=== PATIENT | female | born 1940 | race Caucasian/White ===

== ENCOUNTER 2024-06-06 12:44 | Outpatient (AMB) | payer MEDICARE, OTHER, SELFPAY ==
--- NOTE | 2024-06-06 12:54 | A.OFFPC_ITS ---
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 Transferring care from unknown. Medical records have not been requested and have not received. Blue Prints Trimmer Required: No Shredding Machine Tender: Not Required per policy Accompanied by: Self / Same As Patient Allergies No Known Allergies Allergy (Verified 06/06/24 13:06) Medication List - Last Reconciled 06/06/24 by Arron Carlton MD aspirin 325 mg PO DAILY PRN multivitamin (Daily Multi-Vitamin tablet) 1 tab PO DAILY Tobacco use date assessed: 06/06/24 Fall risk assessment: No Falls in past year Last assessed Fall Risk: 06/06/24 Dental Screening Dental Screen Date: 06/06/24 Did you have a dental visit in the last 12 months?: No Did you have a dental problem in the last 6 months where you did not have access to dental care?: No Was dental information given to patient?: No 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 Health Maintenance - Influenza and COVID-[address] administered in January. - Pneumococcal vaccination completed. - Shingles vaccination series started bu t not completed. - Encouraged dietary improvements focusi ng on plant-based nutrition. - Advised regular exercise irrespective of weather conditions. - Discussion of the risks and benefits o f aspirin use in elderly patients. Social History - Diet: Reports eating healthy and consu dimitrios lot of vegetables. - Exercise: Plans to incorporate more wa lking; currently engages in home-based movement. 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 - Hearing: Using bilateral hearing aids, not yet fully accustomed. - Aspirin use as needed for arthritis. - Expressed a preference for eating bett er over heavy vitamin reliance. Review of Systems - Constitutional: Denies fever, nausea, or vomiting. - Respiratory: Denies shortness of breat h. - Cardiovascular: Denies chest pain. - Gastrointestinal: Denies diarrhea or a bdominal pain. - Musculoskeletal: Reports knee pain, wo rsens with activity. - Dermatological: Reports non-malignant lesion. - Ear/Nose/Throat: Acknowledges hearing difficulties and use of hearing aids. Physical Exam - Cardiovascular- Blood pressure is note d to be within normal limits. - Dermatological- Non-malignant lesion o bserved, no signs of malignancy. - Respiratory- Breathing assessment is n ormal; no reported difficulty. Results Plan The management of arthritis includes eliminating aspirin in favor of Voltaren gel topically. An orthopedic evaluation is on the agenda for joint pain assessment. Thyroid imaging is scheduled via ultrasound to assess nodule status. Compression stockings are advised to manage bilateral leg swelling while ruling out systemic causes through fasting blood tests. Further dermatologic appraisal is optional, pending lesion changes. Relevant vaccinations are up-to-date; a complete shingles series will be pursued via the pharmacy. Patient was informed and verbally consented to the use of an ambient scribe for clinic note documentation during this visit. Discussion Notes I discussed the risks of continuing aspirin for arthritis relief due to potential bleeding issues, promoting Voltaren gel as a safer alternative. We reviewed the necessity for an ultrasound exam of her thyroid to evaluate existing nodules. The need for appropriate screenings, including fasting blood work to investigate potential causes for leg edema, was emphasized. I addressed the importance of a balanced diet, regular exercise, and proper footwear for overall health and well-being?explained current vaccine statuses and encouraged completing the shingles series. Follow-up for newly completed tests and additional concerns expressed by the patient are necessary for maintaining comprehensive care. Patient Instructions - Discontinue aspirin, and begin using V oltaren gel for arthritis pain management. - Schedule and complete the ultrasound f or thyroid evaluation. - Adhere to the recommendation of wearin g compression stockings and elevate legs when seated. - Complete fasting blood work after an o vernight fast. - Increase physical activity, aiming for regular walking and home exercises. - Maintain a balanced diet emphasizing p lant proteins over animal proteins. - Complete shingles vaccination as alberto melendez at a local pharmacy. - Promptly report any changes in the anderson matological lesion to a general car supervisor yard. - Prepare any pertinent medical records for future appointments. [facility] Surgical History (Updated 06/06/24 @ 13:08 by AVRIL Ureña) History of cataract surgery Social History (Updated 06/06/24 @ 12:55 by AVRIL Ureña) Housing: House Alcohol intake: never Patient Tobacco Use Status: Never used Tobacco e-Cigarette/Vaping Use: Never Used Second Hand Smoke Exposure: No service: No Current occupational status: retired Cognitive needs: Yes (Cane) Hearing needs: Yes (Hearing aide) Vision needs: Yes (Glasses) Questionnaire PHQ-9 Over the last 2 weeks, how often have you been bothered by any of the following problems? 1. Little interest or pleasure in doing things: not at all 2. Feeling down, depressed, or hopeless: not at all 3. Trouble falling or staying asleep, or sleeping too much: several days 4. Feeling tired or having little energy: not at all 5. Poor appetite or overeating: not at all 6. Feeling bad about yourself - or that you are a failure or have let yourself or your family down: not at all 7. Trouble concentrating on things, such as reading the newspaper or watching television: not at all 8. Moving or speaking so slowly that other people could have noticed. Or the opposite - being so fidgety or restless that you have been moving around a lot more than usual: not at all 9. Thoughts that you would be better off or of hurting yourself in some way: not at all Total score: 1 Depression Screening Interpretation: Positive Depression Screening Done: Yes Source: Developed by Drs. Audi Isaacs, Lisa Middleton, Chinedu England and colleagues, with an educational reji from [employer]. Thrive Questionnaire Date Thrive assessed: 05/30/24 I am a: Patient What is your living situation today?: I have a steady place to live Within the past 12 months, did the food you bought not last and you didn't have the money to get more?: Never true Within the past 12 months, did you worry whether your food would run out before you got money to buy more?: Never true Do you have trouble paying for medicines?: No Do you have trouble getting transportation to medical appointments?: No Do you have trouble paying your heating and electricity bill?: No Do you have trouble taking care of your child, family member or friend?: No Do you have trouble with day-to-day activities such as bathing, preparing meals, shopping, managing finances, etc.?: No Are you currently unemployed and looking for a job?: No Are you interested in more education?: No Please select the resources that you would like help with: None Currently or been in a relationship where the following occur: No concerns reported THRIVE Score: 0 AUDIT C Alcohol Use Questionnaire (AUDIT-C) 1. How often do you have a drink containing alcohol?: Monthly or less 2. How many drinks containing alcohol do you have on a typical day when you are drinking?: 1 or 2 3. How often do you have six or more drinks on one occasion?: Never Total Score: 1 RAGINI-7 AMB Questionnaire RAGINI-7 Date RAGINI - 7 assessed: 06/06/24 Feeling nervous, anxious, or on edge: 0 = Not at all Not being able to stop or control worryin = Not at all Worrying too much about different things: 0 = Not at all Trouble relaxin = Not at all Being so restless that it is hard to sit still: 0 = Not at all Becoming easily annoyed or irritable: 0 = Not at all Feeling afraid as if something awful might happen: 0 = Not at all Total RAGINI-7 score (0-4 normal; 5-9 mild; 10-14 moderate; 15-21 severe): 0 Source: Developed by Drs. Audi Isaacs, Lisa Middleton, Chinedu England and colleagues, with an educational reji from [employer]. Physical exam (Primary Care) Vital Signs: Last Vital Signs Temp 97.1 F 06/06/24 12:57 Pulse 78 06/06/24 12:57 BP 122/62 06/06/24 12:57 Pulse Ox 96 06/06/24 12:57 Oxygen Delivery Method Room Air 06/06/24 12:57 BMI result Body Mass Index 28.2 Tobacco/Smoking Status: Tobacco use Status Tobacco use date assessed 06/06/24 06/06/24 13:10 Patient Tobacco Use Status Never used Tobacco 06/06/24 13:10 e-Cigarette/Vaping Use Never Used 06/06/24 13:10 PHQ-9: PHQ-9 Score PHQ-9: Total score 1 06/06/24 14:38 Depression Screening Interpretation: Positive Thrive Assessment: Date of Thrive Assessment Date Thrive assessed 05/30/24 06/06/24 12:55 Currently or been in a relationship where the following occur: No concerns reported Const General: alert; No acute distress Eyes Conjunctivae: conjunctivae normal Resp Auscultation: clear to auscultation bilaterally Cardio Rate: regular rate Rhythm: regular rhythm GI Inspection: Yes normal to inspection Abdomen image: 2 1. 3 cm rash with mild yellowish discoloration with a rough surface Extrem Other: Bilateral 2+ edema of the lower extremity General: Yes edema Coding Level of Care Code New Pt Level 4 (24192) Diagnoses Thyroid nodule E04.1 Actinic keratosis L57.0 Colonoscopy refused Z53.20 Hearing loss H91.90 Localized swelling of both lower legs R22.43 Bilateral knee pain M25.561; M25.562 Assessment & Plan Assessment & Plan (1) Thyroid nodule: Code(s): E04.1 - Nontoxic single thyroid nodule Category: Medical (2) Actinic keratosis: Comment: L abdomen Code(s): L57.0 - Actinic keratosis Category: Medical (3) Colonoscopy refused: Code(s): Z53.20 - Procedure and treatment not carried out because of patient's decision for unspecified reasons Category: Medical (4) Hearing loss: Code(s): H91.90 - Unspecified hearing loss, unspecified ear Category: Medical (5) Localized swelling of both lower legs: Code(s): R22.43 - Localized swelling, mass and lump, lower limb, bilateral Category: Medical (6) Bilateral knee pain: Code(s): M25.561 - Pain in right knee; M25.562 - Pain in left knee Category: Medical Plan History of Present Illness Health Maintenance - Influenza and COVID-19 vaccinations last administered in January. - Pneumococcal vaccination completed. - Shingles vaccination series started but not completed. - Encouraged dietary improvements focusing on plant-based nutrition. - Advised regular exercise irrespective of weather conditions. - Discussion of the risks and benefits of aspirin use in elderly patients. Social History - Diet: Reports eating healthy and consuming lot of vegetables. - Exercise: Plans to incorporate more walking; currently engages in home-based movement. - Substance Use: Denies alcohol and tobacco use. - Hearing: Using bilateral hearing aids, not yet fully accustomed. - Aspirin use as needed for arthritis. - Expressed a preference for eating better over heavy vitamin reliance. Review of Systems - Constitutional: Denies fever, nausea, or vomiting. - Respiratory: Denies shortness of breath. - Cardiovascular: Denies chest pain. - Gastrointestinal: Denies diarrhea or abdominal pain. - Musculoskeletal: Reports knee pain, worsens with activity. - Dermatological: Reports non-malignant lesion. - Ear/Nose/Throat: Acknowledges hearing difficulties and use of hearing aids. Physical Exam - Cardiovascular- Blood pressure is noted to be within normal limits. - Dermatological- Non-malignant lesion observed, no signs of malignancy. - Respiratory- Breathing assessment is normal; no reported difficulty. Results Plan The management of arthritis includes eliminating aspirin in favor of Voltaren gel topically. An orthopedic evaluation is on the agenda for joint pain assessment. Thyroid imaging is scheduled via ultrasound to assess nodule status. Compression stockings are advised to manage bilateral leg swelling while ruling out systemic causes through fasting blood tests. Further dermatologic appraisal is optional, pending lesion changes. Relevant vaccinations are up-to-date; a complete shingles series will be pursued via the pharmacy. Patient was informed and verbally consented to the use of an ambient scribe for clinic note documentation during this visit. Discussion Notes I discussed the risks of continuing aspirin for arthritis relief due to potential bleeding issues, promoting Voltaren gel as a safer alternative. We reviewed the necessity for an ultrasound exam of her thyroid to evaluate existing nodules. The need for appropriate screenings, including fasting blood work to investigate potential causes for leg edema, was emphasized. I addressed the importance of a balanced diet, regular exercise, and proper footwear for overall health and well-being?explained current vaccine statuses and encouraged completing the shingles series. Follow-up for newly completed tests and additional concerns expressed by the patient are necessary for maintaining comprehensive care. Patient Instructions - Discontinue aspirin, and begin using Voltaren gel for arthritis pain management. - Schedule and complete the ultrasound for thyroid evaluation. - Adhere to the recommendation of wearing compression stockings and elevate legs when seated. - Complete fasting blood work after an overnight fast. - Increase physical activity, aiming for regular walking and home exercises. - Maintain a balanced diet emphasizing plant proteins over animal proteins. - Complete shingles vaccination as suggested at a local pharmacy. - Promptly report any changes in the dermatological lesion to a general car supervisor yard. - Prepare any pertinent medical records for future appointments. Orders: Orders 2 Complete Blood Count Auto Diff Today R22.43 - Localized swelling, mass and lump, lower limb, bilateral Comprehensive Met. Panel Today R22.43 - Localized swelling, mass and lump, lower limb, bilateral Free T4 (Free Thyroxine) Today R22.43 - Localized swelling, mass and lump, lower limb, bilateral Lipid Panel Today E78.00 - Pure hypercholesterolemia, unspecified, R22.43 - Localized swelling, mass and lump, lower limb, bilateral XR knee standing BI Today M25.561 - Pain in right knee, M25.562 - Pain in left knee Thyroid Stimulating Hormone Today R22.43 - Localized swelling, mass and lump, lower limb, bilateral Vitamin B12 and Folate Today R22.43 - Localized swelling, mass and lump, lower limb, bilateral Vitamin D 25-OH Total Today R22.43 - Localized swelling, mass and lump, lower limb, bilateral B Type Natriuretic Peptide Today R22.43 - Localized swelling, mass and lump, lower limb, bilateral US thyroid Today E04.1 - Nontoxic single thyroid nodule Referrals 2 Orthopedics Referral M25.561 - Pain in right knee, M25.562 - Pain in left knee Dermatology Referral L57.0 - Actinic keratosis Medications: New 2 compress.stocking,knee,reg,med As directed 20-30 mm HG 12 ea 0RF R22.43 - Localized swelling, mass and lump, lower limb, bilateral
[2024-06-06 12:57] VITALS: BP 122/62; PULSE 78; TEMP 36.2; O2SAT 96; BMI 28.2
== END 2024-06-06 14:01 | disposition home or self-care (01) ==
PROVIDERS: PCP Internal Medicine; Visit Provider Internal Medicine
DX: E04.1 Nontoxic single thyroid nodule (principal); L57.0 Actinic keratosis; Z53.20 Procedure and treatment not carried out because of patient's decision for unspecified reasons; H91.90 Unspecified hearing loss, unspecified ear; R22.43 Localized swelling, mass and lump, lower limb, bilateral; M25.561 Pain in right knee; M25.562 Pain in left knee

== ENCOUNTER → 2024-06-06 12:44 | Outpatient (BNVA) | payer MEDICARE, OTHER, SELFPAY | PROVIDERS: PCP Internal Medicine; Visit Provider Internal Medicine | DX: E04.1 Nontoxic single thyroid nodule (principal); L57.0 Actinic keratosis; R22.43 Localized swelling, mass and lump, lower limb, bilateral; M25.562 Pain in left knee; M25.561 Pain in right knee; Z53.20 Procedure and treatment not carried out because of patient's decision for unspecified reasons | CPT/HCPCS: 99202 ==

== ENCOUNTER 2024-06-11 06:44 | Outpatient (REF) | payer MEDICARE, OTHER, SELFPAY ==
--- NOTE | ~2024-06-11 | XR_ITS ---
EXAMINATION: XR KNEE AP STANDING CLINICAL INFORMATION: M25.561 - Pain in right knee COMPARISON: None available. TECHNIQUE: AP bilateral standing view of the knees was obtained. FINDINGS: There is moderate loss of medial compartment right knee with moderate periarticular spurring. There is mild spurring lateral compartment. No fracture or loose bodies seen. There is mild loss of medial compartment joint space left knee with periarticular spurring. No loose bodies seen. There is bilateral knee joint soft tissue swelling. Mild right knee genu varus deformity seen. XR/XR knee standing BI IMPRESSION: Degenerative arthritic changes medial compartment both knees. There is genu varus deformity of the right knee. No visible acute fracture, dislocation or subluxation seen. Electronically signed by: Lane Ang MD 06/11/2024 11:06 AM [facility]
[2024-06-11 07:11] LABS: MANUAL DIFF FLAG NO
[2024-06-11 07:35] LABS: Basophils Percent Auto 0.5 % (0-2); Eosinophils Absolute Auto 0.1 X10*3/uL (0.0-0.4); Eosinophils Percent Auto 1.1 % (0-4); Hematocrit 41.8 % (37.0-47.0); Hemoglobin 13.7 g/dl (12.0-16.0); Imm Gran Abs Auto 0.01 X10*3/uL (0.00-0.03); Imm Gran Pct Auto 0.2 % (0.0-0.4); Lymphocytes Absolute Auto 1.9 X10*3/uL (1.2-4.9); Lymphocytes Percent Auto 34.1 % (20-40); Mean Corpuscular HGB Conc 32.8 g/dl (31.0-35.0); Mean Corpuscular Volume 91.7 fL (80.0-98.0); Mean Platelet Volume 11.4 fL (9.4-12.3); Monocytes Absolute Auto 0.4 X10*3/uL (0.1-1.2); Monocytes Percent Auto 6.6 % (2-11); Neutrophils Absolute Auto 3.2 x10*3/uL (2.0-8.3); Neutrophils Percent Auto 57.5 % (45-73); Platelet Count 151 X10*3/uL (160-400); Red Blood Count 4.56 X10*6/uL (4.20-5.50); Red Cell Distribution Width 14.6 % (11.0-16.0); White Blood Count 5.6 X10*3/uL (4.8-10.8)
[2024-06-11 08:10] LABS: B Type Natriuretic Peptide 43 pg/mL (<100)
[2024-06-11 08:19] LABS: Alanine Aminotransferase 25 U/L (0-31); Albumin Level 4.2 g/dL (3.5-5.0); Alkaline Phosphatase 42 U/L (39-117); Anion Gap 11 (12-20); Aspartate Amino Transferase 30 U/L (5-31); Bilirubin Total 0.5 mg/dL (0.0-1.0); Blood Urea Nitrogen 23 mg/dL (9-16); Calcium 9.3 mg/dL (8.4-10.2); Carbon Dioxide 27 mmol/L (22-29); Chloride 108 mmol/L (96-108); Cholesterol 185 mg/dL (<200); Estimated Glomerular Filt Rate > 60; Glucose Random 103 mg/dL (60-115); HDL Cholesterol 98 mg/dL (>40); LDL Cholesterol Calculated 76 mg/dL (<100); Potassium 3.9 mmol/L (3.3-5.1); Sodium 142 mmol/L (135-145); Total Protein 7.9 g/dL (6.5-8.0); Triglycerides 55 mg/dL (<150)
[2024-06-11 08:38] LABS: Free T4 (Free Thyroxine) 1.11 ng/dL (0.71-1.85); Thyroid Stimulating Hormone 2.87 uIU/mL (0.32-4.0); Vitamin D 25-OH Total 53.4 ng/mL (>30)
[2024-06-11 08:42] LABS: Folate 14.6 ng/mL (> or = 4.0); Vitamin B12 1524 pg/mL (200-900)
== END 2024-06-11 06:45 | disposition home or self-care (01) ==
LOC: HO.XRAY 06:44
PROVIDERS: PCP Internal Medicine; Visit Provider Internal Medicine
DX: M25.561 Pain in right knee (principal); M25.562 Pain in left knee; E78.00 Pure hypercholesterolemia, unspecified; R22.43 Localized swelling, mass and lump, lower limb, bilateral
CPT/HCPCS: 36415; 73565; 80053; 80061; 82306; 82607; 82746; 83880; 84439; 84443; 85025

== ENCOUNTER → 2024-06-11 07:14 | Outpatient (BNV) | payer MEDICARE, OTHER, SELFPAY | PROVIDERS: PCP Internal Medicine; Visit Provider Radiology Diagnostic Radiology | DX: M17.0 Bilateral primary osteoarthritis of knee (principal); M21.161 Varus deformity, not elsewhere classified, right knee | CPT/HCPCS: 73565 ==

== ENCOUNTER 2024-07-01 11:22 | Outpatient (REF) | payer MEDICARE, OTHER, SELFPAY ==
--- NOTE | ~2024-07-01 | US_ITS ---
EXAMINATION: US THYROID HISTORY: E04.1 - Nontoxic single thyroid nodule TECHNIQUE: Real-time grayscale ultrasound imaging was performed and images were reviewed. COMPARISON: There are no prior studies for comparison. FINDINGS: SIZE: The right thyroid lobe measures 4.1 x 1.8 x 1.4 cm. The left thyroid lobe measures 3.6 x 1.6 x 1.6 cm. The isthmus measures 1 mm. FLOW: Flow to the gland is normal. ECHOGENICITY: The echotexture of the gland is homogeneous. NODULES: Multiple subcentimeter cysts and spongiform nodules are noted bilaterally. There is a single solid nodule noted as described below: Nodule #: 1 Location: Midportion of the left thyroid lobe measuring 4 x 4 x 5 mm. Shape: Wider than tall (0 points) Margins: Smooth (0 points) Echotexture: Hypoechoic (2 points) Composition: Solid (2 points) Calcifications: None (0 points) Total points: 4 TIRADS: TR4: Moderately suspicious. US/US thyroid IMPRESSION: Subcentimeter thyroid nodules as described ACR TI-RADS Guidelines TR1 (0 points): Benign, No follow-up or biopsy required TR2 (2 points): Not Suspicious, No biopsy or follow up indicated TR3 (3 points): Mildly Suspicious, FNA if >= 2.5 cm, Follow if >= 1.5 cm TR4 (4-6 points): Moderately Suspicious, FNA if >= 1.5 cm, Follow if >= 1.0 cm TR5 (>=7 points): Highly Suspicious, FNA if >= 1.0 cm, Follow if >= 0.5 cm Electronically signed by: Audi Orozco MD 07/02/2024 07:36 AM EDT
== END 2024-07-01 11:23 | disposition home or self-care (01) ==
LOC: HO.US 11:22
PROVIDERS: PCP Internal Medicine; Visit Provider Internal Medicine
DX: E04.1 Nontoxic single thyroid nodule (principal)
CPT/HCPCS: 76536

== ENCOUNTER → 2024-07-01 11:26 | Outpatient (BNV) | payer MEDICARE, OTHER, SELFPAY | PROVIDERS: PCP Internal Medicine; Visit Provider Radiology Diagnostic Radiology | DX: E04.1 Nontoxic single thyroid nodule (principal) | CPT/HCPCS: 76536 ==

== ENCOUNTER 2024-08-06 10:04 | Outpatient (AMB) | payer MEDICARE, OTHER, SELFPAY ==
--- NOTE | 2024-08-06 10:08 | MHC.OFFVIS ---
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 She describes her right knee pain as sharp in nature. She did have a cortisone injection given into her right shoulder several years ago which gave her fairly good relief. She has not had a cortisone injection given into either of her knees. She has tried Tylenol which gives her mild relief. She does walk with a cane. She has been walking for exercise. Allergies No Known Allergies Allergy (Verified 08/06/24 10:11) Medication List - Last Reconciled 08/06/24 by Luis Felipe Adair MD compress.stocking,knee,reg,med As directed 20-30 mm HG multivitamin (Daily Multi-Vitamin tablet) 1 tab PO DAILY PFSH Surgical History History of cataract surgery Social History Housing: House Alcohol intake: never Patient Tobacco Use Status: Never used Tobacco e-Cigarette/Vaping Use: Never Used Second Hand Smoke Exposure: No service: No Current occupational status: retired Cognitive needs: Yes (Cane) Hearing needs: Yes (Hearing aide) Vision needs: Yes (Glasses) Physical Exam Vital Signs: BMI result Body Mass Index 29.1 Const Other: Well-nourished well-developed very friendly female awake alert and oriented x3 in no acute distress Extrem Other: Bilateral knee examination shows minimal effusions, palpable crepitus with range of motion, pain with range of motion, no instability Office Procedures AMB Joint Injection/Aspiration Joint Injection/Aspiration Primary Site: right knee Prep: site was prepped using aseptic technique Injected: 40 mg of, DepoMedrol and 1% plain lidocaine Procedure: The patient tolerated the procedure well Coding 14865 - Large joint Procedure code (CPT) selection complete Results Reviewed Results Reviewed: X-rays of the patient's right knee show moderate to severe joint space narrowing most significant in the medial compartment, no acute bony abnormalities X-rays of the patient's left knee show mild to moderate diffuse joint space narrowing, no acute bony abnormalities Assessment & Plan Assessment & Plan (1) Arthritis of right knee: Code(s): M17.11 - Unilateral primary osteoarthritis, right knee Category: Medical (2) Bilateral knee pain: Code(s): M25.561 - Pain in right knee; M25.562 - Pain in left knee Category: Medical Plan Ms. Avina presents with bilateral knee pains, right greater than left, due to degenerative joint disease. The risks and benefits of a right knee cortisone injection were discussed at length with the patient. The patient wished to proceed. She tolerated the injection well. At this point her left knee pain is tolerable to her. We will hold off on a left knee cortisone injection. She will contact me prior to her follow-up appointment in 3 months should any questions or concerns arise. Feel free to call me at any time should questions regarding her orthopedic management arise. I spent 20 minutes in reviewing the patient's records and imaging studies, seeing the patient and documenting in the medical record. Orders: Orders AMB Joint Injection/Aspiration Today M17.11 - Unilateral primary osteoarthritis, right knee Coding Level of Care Code New Pt Level 3 (51494) Complex EM visit Add On G2211 Diagnoses Arthritis of right knee M17.11 Bilateral knee pain M25.561; M25.562 CPT Codes Coding - 71966 Large joint: 68211 - Large joint ([id number])
[2024-08-06 10:14] VITALS: BMI 29.1
== END 2024-08-06 10:39 | disposition home or self-care (01) ==
LOC: HO.HOS 10:06
PROVIDERS: PCP Internal Medicine; Visit Provider Orthopaedic Surgery
DX: M17.11 Unilateral primary osteoarthritis, right knee (principal); M25.562 Pain in left knee
CPT/HCPCS: 20610; 99203

== ENCOUNTER → 2024-08-06 10:04 | Outpatient (BNVA) | payer MEDICARE, OTHER, SELFPAY | PROVIDERS: PCP Internal Medicine; Visit Provider Orthopaedic Surgery | DX: M17.11 Unilateral primary osteoarthritis, right knee (principal); M25.561 Pain in right knee; M25.562 Pain in left knee | CPT/HCPCS: 20610; 99202; J1010; J2003 ==

== ENCOUNTER 2024-10-03 11:53 | Outpatient (AMB) | payer MEDICARE, OTHER, SELFPAY ==
[2024-10-03 12:02] VITALS: BP 138/72; PULSE 77; O2SAT 96; BMI 28.2
--- NOTE | 2024-10-03 12:02 | A.OFFPC_ITS ---
Vital Signs 10/03/24 12:02 Height 5 ft 2 in Weight 154 lb BMI 28.2 BP 138/72 Blood Pressure Location Lt brachial Position Sitting Pulse 77 Pulse Source Pulse Oximeter Pulse Oximetry (%) 96 Oxygen Delivery Method Room Air Intake Visit Reasons: pe Allergies No Known Allergies Allergy (Verified 10/03/24 12:02) Medication List - Last Reconciled 10/03/24 by Arron Carlton MD acetaminophen (Tylenol Extra Strength) 500 mg PO Q6H PRN calcium carbonate-vitamin D3 600 mg-5 mcg (200 unit) 1 tab PO DAILY compress.stocking,knee,reg,med As directed 20-30 mm HG magnesium 250 mg PO DAILY multivitamin (Daily Multi-Vitamin tablet) 1 tab PO DAILY omega-3 fatty acids-fish oil 360-1,200 mg (Fish Oil) 1 cap PO DAILY Tobacco use date assessed: 06/06/24 Fall risk assessment: No Falls in past year Last assessed Fall Risk: 10/03/24 Dental Screening Dental Screen Date: 06/06/24 [facility] Surgical History History of cataract surgery Social History Housing: House Alcohol intake: never Patient Tobacco Use Status: Never used Tobacco Tobacco use type: Cigarette e-Cigarette/Vaping Use: Never Used Second Hand Smoke Exposure: No service: No Current occupational status: retired Current occupational exposures/hazards: No Cognitive needs: Yes (Cane) Hearing needs: Yes (Hearing aide) Vision needs: Yes (Glasses) Questionnaire PHQ-9 Over the last 2 weeks, how often have you been bothered by any of the following problems? 1. Little interest or pleasure in doing things: not at all 2. Feeling down, depressed, or hopeless: not at all 3. Trouble falling or staying asleep, or sleeping too much: several days 4. Feeling tired or having little energy: not at all 5. Poor appetite or overeating: not at all 6. Feeling bad about yourself - or that you are a failure or have let yourself or your family down: not at all 7. Trouble concentrating on things, such as reading the newspaper or watching television: not at all 8. Moving or speaking so slowly that other people could have noticed. Or the opposite - being so fidgety or restless that you have been moving around a lot more than usual: not at all 9. Thoughts that you would be better off or of hurting yourself in some way: not at all Total score: 1 Depression Screening Interpretation: Positive Depression Screening Done: Yes 23882 - PHQ-9 Billing: Yes Source: Developed by Drs. Audi Isaacs, Lisa Middleton, Chinedu England and colleagues, with an educational reji from [employer]. Thrive Questionnaire Date Thrive assessed: 05/30/24 I am a: Patient What is your living situation today?: I have a steady place to live Within the past 12 months, did the food you bought not last and you didn't have the money to get more?: Never true Within the past 12 months, did you worry whether your food would run out before you got money to buy more?: Never true Do you have trouble paying for medicines?: No Do you have trouble getting transportation to medical appointments?: No Do you have trouble paying your heating and electricity bill?: No Do you have trouble taking care of your child, family member or friend?: No Do you have trouble with day-to-day activities such as bathing, preparing meals, shopping, managing finances, etc.?: No Are you currently unemployed and looking for a job?: No Are you interested in more education?: No Please select the resources that you would like help with: None Currently or been in a relationship where the following occur: No concerns reported THRIVE Score: 0 AUDIT C Alcohol Use Questionnaire (AUDIT-C) 1. How often do you have a drink containing alcohol?: Monthly or less 2. How many drinks containing alcohol do you have on a typical day when you are drinking?: 1 or 2 3. How often do you have six or more drinks on one occasion?: Never Total Score: 1 RAGINI-7 AMB Questionnaire RAGINI-7 Date RAGINI - 7 assessed: 06/06/24 Source: Developed by Drs. Audi Isaacs, Lisa Middleton, Chinedu England and colleagues, with an educational reji from [employer]. Review of Systems Const Denies poor appetite and Denies weakness Eyes Denies no additional complaints ENT Reports Normal hearing present, Denies dizziness, Denies nasal congestion, Denies tinnitus and Denies sore throat Card Denies chest pain, Denies syncope, Denies rapid heart rate and Denies dyspnea Resp Denies cough and Denies dyspnea GI Denies change in stool character, Reports constipation, Denies diarrhea, Denies nausea and Denies vomiting Denies urinary frequency, Denies difficulty voiding and Denies dysuria Neuro Reports Normal hearing present, Denies confusion, Denies dizziness, Denies syncope and Denies weakness Psych Denies confusion Physical exam (Primary Care) Vital Signs: Last Vital Signs Pulse 77 10/03/24 12:02 BP 138/72 10/03/24 12:02 Pulse Ox 96 10/03/24 12:02 Oxygen Delivery Method Room Air 10/03/24 12:02 BMI result Body Mass Index 28.2 Tobacco/Smoking Status: Tobacco use Status Tobacco use date assessed 06/06/24 10/03/24 12:11 Patient Tobacco Use Status Never used Tobacco 10/03/24 12:11 Tobacco use type Cigarette 10/03/24 12:11 e-Cigarette/Vaping Use Never Used 10/03/24 12:11 PHQ-9: PHQ-9 Score PHQ-9: Total score 1 10/03/24 12:50 Depression Screening Interpretation: Positive Thrive Assessment: Date of Thrive Assessment Date Thrive assessed 05/30/24 10/03/24 12:11 Currently or been in a relationship where the following occur: No concerns reported Const General: No confusion Orientation/consciousness: No confusion HENMT Head: Yes normocephalic Ears: external ears normal and TM's normal bilaterally Face and sinus: Yes normal facial exam Mouth: moist mucous membranes Throat: Yes tonsils normal Eyes Conjunctivae: conjunctivae normal Pupils: Equal, round and reactive pupils present and Pupil accommodation reflex normal Direct Ophthalmoscopy: normal light reflex Neck Neck: No lymphadenopathy Thyroid: Thyroid normal Chest Chest palpation & inspection: normal inspection of the chest Resp Effort & Inspection: normal respiratory effort and no audible wheezes Auscultation: clear to auscultation bilaterally, no crackles, no wheezes and lung sounds not diminished Cardio Rate: regular rate Rhythm: regular rhythm Peripheral pulses: radial pulses present and dorsalis pedis present GI Other: declined rectal exam Palpation (GI): no masses Auscultation: normal bowel sounds and normoactive bowel sounds Rectal Exam - Female: deferred Skin General skin exam: no rashes or lesions noted Rashes: no rashes Neuro General: No confusion Cranial nerves: Yes Equal, round and reactive pupils present and Yes Normal hearing present Cognition (Neuro): normal cognition Gait exam (Neuro): Normal gait present Motor exam (neuro): 5/5 motor strength present throughout Deep tendon reflexes (DTR's): Right brachioradialis reflex intensity grade: 2+, Left brachioradialis reflex intensity grade: 2+, Right patellar reflex intensity grade: 2+ and Left patellar reflex intensity grade: 2+ Extrem General: No edema Immunizations pneumoc 20-fina conj-dip cr(PF) 0.5 mL IM syringe Performing Provider: Arron Carlton MD [facility] [place] [facility] Administered by: AVRIL Preciado on 10/03/24 12:51 Dose Route Admin Location Dispensed Lot Number Expiration Date NDC Press Setter 0.5 mL IM Left Deltoid 0.5 mL [id number] 09/08/25 [employer] Total Dispensed Waste 0.5 mL 0 % VIS Given Date VIS Provided VIS Publication Date 10/03/24 Single Vaccine 24 Eligibility Eligibility Date Funding Source Not [facility] Eligible 10/03/24 Private Coding Level of Care Code Est Pt Prev Care >65y(78376) Diagnoses Physical exam, annual Z00.00 Arthritis of right knee M17.11 Peripheral vascular disease I73.9 Gait instability R26.81 Additional Codes PHQ-9 - 31242 - PHQ-9 Billing: Yes ([id number]) Assessment & Plan Assessment & Plan (1) Physical exam, annual: Code(s): Z00.00 - Encounter for general adult medical examination without abnormal findings Category: Medical Plan: Patient is advised to eat healthy, keep well hydrated, keep active and have adequate sleep. (2) Arthritis of right knee: Code(s): M17.11 - Unilateral primary osteoarthritis, right knee Category: Medical Plan: Patient has seen Orthopedics and had injections of the night knee (3) Peripheral vascular disease: Code(s): I73.9 - Peripheral vascular disease, unspecified Category: Medical Plan: When sitting down elevate the legs, exercise, and support stockings (4) Gait instability: Code(s): R26.81 - Unsteadiness on feet Category: Medical Plan History of Present Illness The patient is an 84-year-old female presenting for an annual physical examina tion. The patient has a history of thyroid nodules, which were evaluated with an ultrasound in June, revealing multiple nodules on both sides of the thyroid, with the largest being 4 mm on the left lobe. These nodules were deemed not suspicious, and no biopsy or follow-up was indicated. The patient has experienced degenerative arthritis in both knees, for which she received a right knee injection. The patient reports that the injection has provided temporary relief, but she is aware of the potential for bone softening with repeated steroid use. The patient has a history of venous insufficiency, contributing to lower extremity edema. She has not been wearing compression stockings due to discomfort in hot weather, although she acknowledges their importance in managing swelling. The patient follows a vegetarian diet and takes several supplements, including calcium, vitamin D, magnesium, multivitamins, and fish oil. She does not smoke or consume alcohol. Recent blood work in June showed normal blood counts, mild thrombocytopenia, normal electrolytes, renal function, and liver function. Her blood sugar was mildly elevated, and her cholesterol levels were within normal limits, with an LDL of 76. Vitamin B12 levels were elevated, and it was advised to reduce the frequency of supplementation. Health Maintenance - Pneumonia vaccination discussed and planned for administration - Patient follows a vegetarian diet and takes supplements including calcium, vitamin D, magnesium, multivitamins, and fish oil - Regular follow-up with dermatology for skin conditions Social History - Diet: Follows a vegetarian diet - Substance Use: Does not smoke or consume alcohol - Supplements: Takes calcium, vitamin D, magnesium, multivitamins, and fish oil Review of Systems - General: Denies fever, dizziness, nausea, or vomiting - Cardiovascular: Denies chest pain, heartburn, or dyspnea - Gastrointestinal: Denies dysphagia, constipation, diarrhea, or blood in stools - Genitourinary: Denies dysuria, reports nocturia once or twice per night - Neurological: Denies balance issues, reports using hearing aids effectively Physical Exam General: Cooperative, healthy appearing, comfortable, no acute distress and well developed Orientation: Patient oriented x3 Limitations: No limitations Head: Normal to inspection Ears: Hearing grossly normal bilaterally with hearing aids Nose: Normal external nose present Face and sinus: Normal facial exam Eyes: Appearance normal, both eyes and all related structures Neck: Normal visual inspection and Yes full ROM Respiratory: Normal respiratory effort and able to speak in complete sentences. Clear to auscultation bilaterally Cardiovascular: Regular rate and rhythm. Normal S1 and S2 GI: Normal to inspection. Soft to palpation and nontender Skin: Seborrheic keratosis, epidermal inclusion cyst on the spine, skin tags, spider veins, and edema from venous insufficiency noted Neuro: Patient oriented x3 Extremities: Normal to inspection, but noted swelling possibly due to varicose veins Results - Labs: Normal blood count, mild thrombocytopenia, normal electrolytes, renal function, and liver function, mildly elevated blood sugar, LDL cholesterol at 76, elevated vitamin B12 - Imaging: Thyroid ultrasound in June showing multiple nodules, largest 4 mm, not suspicious Plan The patient will receive a pneumonia vaccination today as part of her preventative care measures. She is advised to continue her current supplements but to reduce the frequency of vitamin intake due to elevated levels. For her degenerative arthritis, the patient has been receiving steroid injections, which have provided temporary relief. However, she is advised to consider physical therapy to improve balance and reduce reliance on injections. The patient is encouraged to wear compression stockings to manage edema from venous insufficiency, despite discomfort in hot weather. She is also advised to maintain hydration and continue her vegetarian diet for overall health. Patient was informed and verbally consented to the use of an ambient scribe for clinic note documentation during this visit. Discussion Notes During the visit, I discussed the importance of receiving the pneumonia vaccination, which is planned for today. We reviewed her current supplement regimen, advising a reduction in vitamin B12 intake due to elevated levels. I explained the temporary nature of steroid injections for her knee arthritis and suggested considering physical therapy to improve balance and reduce injection frequency. We also discussed the use of compression stockings for managing edema and the importance of maintaining hydration and a healthy diet. Patient Instructions - Receive pneumonia vaccination today. - Continue current supplements but reduce vitamin B12 intake to every other day. - Consider physical therapy for knee arthritis and balance improvement. - Wear compression stockings to manage leg swelling. - Maintain hydration and continue following a vegetarian diet. Orders: Orders Pneumococcal 20 Immunization Today Z23 - Encounter for immunization PT Evaluation and Treatment Today M17.11 - Unilateral primary osteoarthritis, right knee, R26.81 - Unsteadiness on feet
== END 2024-10-03 12:53 | disposition home or self-care (01) ==
LOC: HO.HMCH 11:54
PROVIDERS: PCP Internal Medicine; Visit Provider Internal Medicine
DX: Z00.00 Encounter for general adult medical examination without abnormal findings (principal); M17.11 Unilateral primary osteoarthritis, right knee; I73.9 Peripheral vascular disease, unspecified; R26.81 Unsteadiness on feet; Z23 Encounter for immunization

== ENCOUNTER → 2024-10-03 11:53 | Outpatient (BNVA) | payer MEDICARE, OTHER, SELFPAY | PROVIDERS: PCP Internal Medicine; Visit Provider Internal Medicine | DX: Z00.00 Encounter for general adult medical examination without abnormal findings (principal); Z23 Encounter for immunization; M17.11 Unilateral primary osteoarthritis, right knee; I73.9 Peripheral vascular disease, unspecified; R26.81 Unsteadiness on feet | CPT/HCPCS: 90471; 90677; 96127; 99397 ==

== ENCOUNTER 2024-12-10 14:20 | Outpatient (AMB) | payer MEDICARE, OTHER, SELFPAY ==
--- NOTE | 2024-12-10 14:26 | MHC.OFFVIS ---
Vital Signs 12/10/24 14:28 Height 5 ft 2 in Weight 154 lb BMI 28.2 Intake Visit Reasons: Inj-right knee injection-last 08/06/24 Intake Note: Valerie is a 84 year old female who presents with complaints of right knee pain. She describes her pain as sharp in nature. She did have a cortisone injection at her last visit which gave her fairly good relief. She wishes to hold off on surgery if at all possible. She has tried Tylenol and Motrin which gave her minimal relief. Allergies No Known Allergies Allergy (Verified 12/10/24 14:29) Medication List - Last Reconciled 12/10/24 by Luis Felipe Adair MD acetaminophen (Tylenol Extra Strength) 500 mg PO Q6H PRN calcium carbonate-vitamin D3 600 mg-5 mcg (200 unit) 1 tab PO DAILY compress.stocking,knee,reg,med As directed 20-30 mm HG magnesium 250 mg PO DAILY multivitamin (Daily Multi-Vitamin tablet) 1 tab PO DAILY omega-3 fatty acids-fish oil 360-1,200 mg (Fish Oil) 1 cap PO DAILY PFSH Surgical History History of cataract surgery Social History Housing: House Alcohol intake: never Patient Tobacco Use Status: Never used Tobacco Tobacco use type: Cigarette e-Cigarette/Vaping Use: Never Used Second Hand Smoke Exposure: No service: No Current occupational status: retired Current occupational exposures/hazards: No Cognitive needs: Yes (Cane) Hearing needs: Yes (Hearing aide) Vision needs: Yes (Glasses) Physical Exam Const Other: Well-nourished well-developed very friendly female awake alert and oriented x3 in no acute distress Extrem Other: Right knee examination shows a minimal effusion, palpable crepitus with range of motion, pain with range of motion, no instability Office Procedures AMB Joint Injection/Aspiration Joint Injection/Aspiration Primary Site: right knee Prep: site was prepped using aseptic technique Injected: 40 mg of, DepoMedrol and 1% plain lidocaine Procedure: The patient tolerated the procedure well Coding 85342 - Large joint Procedure code (CPT) selection complete Results Reviewed Results Reviewed: X-rays of the patient's right knee taken previously show joint space narrowing, subchondral sclerosis, no acute bony abnormalities Assessment & Plan Assessment & Plan (1) Arthritis of right knee: Code(s): M17.11 - Unilateral primary osteoarthritis, right knee Category: Medical Plan Ms. Avina presents with right knee pain due to degenerative joint disease. The risks and benefits of a right knee cortisone injection were discussed at length with the patient. The patient wished to proceed. She tolerated the injection well. She will continue with her home exercise program. She will contact me prior to her follow-up appointment in 3 months should any questions or concerns arise. Feel free to call me at any time should questions regarding her orthopedic management arise. I spent 20 minutes in reviewing the patient's records and imaging studies, seeing the patient and documenting in the medical record. Orders: Orders AMB Joint Injection/Aspiration Today M17.11 - Unilateral primary osteoarthritis, right knee Coding Level of Care Code Est Pt Level 3 (37708) Complex EM visit Add On G2211 Diagnoses Arthritis of right knee M17.11 CPT Codes Coding - 75523 Large joint: 87954 - Large joint ([id number])
[2024-12-10 14:28] VITALS: BMI 28.2
== END 2024-12-10 14:41 | disposition home or self-care (01) ==
LOC: HO.HOS 14:21
PROVIDERS: PCP Internal Medicine; Visit Provider Orthopaedic Surgery
DX: M17.11 Unilateral primary osteoarthritis, right knee (principal)
CPT/HCPCS: 20610; 99213

== ENCOUNTER → 2024-12-10 14:20 | Outpatient (BNVA) | payer MEDICARE, OTHER, SELFPAY | PROVIDERS: PCP Internal Medicine; Visit Provider Orthopaedic Surgery | DX: M17.11 Unilateral primary osteoarthritis, right knee (principal) | CPT/HCPCS: 20610; 99212; J1010; J2003 ==

== ENCOUNTER 2025-03-12 13:12 | Outpatient (AMB) | payer MEDICARE, OTHER, SELFPAY ==
--- NOTE | 2025-03-12 13:21 | MHC.OFFVIS ---
Vital Signs 03/12/25 13:27 Height 5 ft 2 in Weight 152 lb BMI 27.8 Intake Visit Reasons: Right knee pain Intake Note: Valerie is a 84 year old female who presents with complaints of right knee pain. She describes her pain as sharp in nature. She did have a cortisone injection given into her right knee at her last visit which gave her only mild relief. She has tried Tylenol and anti-inflammatory medicines which gave her minimal relief. At this point her right knee pain is interfering with her activities of daily living and her ability to sleep well through the night. The patient states that her right leg tends to swell more than her left. She is considering undergoing right total knee replacement surgery next year if her pain continues to worsen. Allergies nickel Allergy (Intermediate, Verified 03/12/25 13:28) Rash Medication List - Last Reconciled 03/12/25 by Luis Felipe Adair MD acetaminophen (Tylenol Extra Strength) 500 mg PO Q6H PRN calcium carbonate-vitamin D3 600 mg-5 mcg (200 unit) 1 tab PO DAILY compress.stocking,knee,reg,med As directed 20-30 mm HG magnesium 250 mg PO DAILY multivitamin (Daily Multi-Vitamin tablet) 1 tab PO DAILY omega-3 fatty acids-fish oil 360-1,200 mg (Fish Oil) 1 cap PO DAILY PFSH Surgical History History of cataract surgery Social History (Updated 03/12/25 @ 13:30 by Kimmy Marroquin [facility]) Housing: House Alcohol intake: never Patient Tobacco Use Status: Never used Tobacco e-Cigarette/Vaping Use: Never Used Second Hand Smoke Exposure: No service: No Current occupational status: retired Current occupational exposures/hazards: No Cognitive needs: Yes (Cane) Hearing needs: Yes (Hearing aide) Vision needs: Yes (Glasses) Physical Exam Vital Signs: BMI result Body Mass Index 27.8 Extrem Other: Right knee examination shows a minimal effusion, palpable crepitus with range of motion, pain with range of motion, no instability Office Procedures AMB Joint Injection/Aspiration Joint Injection/Aspiration Primary Site: Right Knee Prep: site was prepped using aseptic technique Injected: 40 mg of, DepoMedrol, with 3 mL of and 1% plain Lidocaine Procedure: The patient tolerated the procedure well Coding 05667 - Large joint Procedure code (CPT) selection complete Assessment & Plan Assessment & Plan (1) Arthritis of right knee: Code(s): M17.11 - Unilateral primary osteoarthritis, right knee Category: Medical Plan Ms. Avina presents with right knee pain due to degenerative joint disease. The risks and benefits of a right knee cortisone injection were discussed at length with the patient. The patient wished to proceed. She tolerated the injection well. Because of the patient's right leg swelling I will refer her to our vascular surgery department for workup of peripheral vascular disease. She will contact me prior to her follow-up appointment in 3 months should any questions or concerns arise. Feel free to call me at any time should questions regarding her orthopedic management arise. I spent 22 minutes in reviewing the patient's records and imaging studies, seeing the patient and documenting in the medical record. Orders: Orders AMB Joint Injection/Aspiration Today M17.11 - Unilateral primary osteoarthritis, right knee Referrals Vascular Surgery Referral I73.9 - Peripheral vascular disease, unspecified Coding Level of Care Code Est Pt Level 3 (50422) Complex visit Add On G2211 Diagnoses Arthritis of right knee M17.11 CPT Codes Coding - 64803 Large joint: 50084 - Large joint ([id number])
[2025-03-12 13:27] VITALS: BMI 27.8
== END 2025-03-12 13:45 | disposition home or self-care (01) ==
LOC: HO.HOS 13:13
PROVIDERS: PCP Internal Medicine; Visit Provider Orthopaedic Surgery
DX: M17.11 Unilateral primary osteoarthritis, right knee (principal)
CPT/HCPCS: 20610; 99213

== ENCOUNTER → 2025-03-12 13:12 | Outpatient (BNVA) | payer MEDICARE, OTHER, SELFPAY | PROVIDERS: PCP Internal Medicine; Visit Provider Orthopaedic Surgery | DX: M17.11 Unilateral primary osteoarthritis, right knee (principal); M25.561 Pain in right knee | CPT/HCPCS: 20610; 99212; J1010; J2003 ==